=== PATIENT | male | born 1995 | race Caucasian/White ===

== ENCOUNTER 2018-11-11 20:37 | Emergency (ER) | payer OTHER ==
[~2018-11-11] VITALS: Ht 182.9 cm; Wt 106.6 kg
[2018-11-11 21:58] VITALS: BP 119/69
== END 2018-11-11 21:59 | disposition home or self-care (01) ==
LOC: ER 20:37
DX: S61.011A Laceration without foreign body of right thumb without damage to nail, initial encounter (principal); Z88.1 Allergy status to other antibiotic agents; W26.8XXA Contact with other sharp object(s), not elsewhere classified, initial encounter; Y92.89 Other specified places as the place of occurrence of the external cause; Y99.0 Civilian activity done for income or pay; Y99.8 Other external cause status